=== PATIENT | male | born 1955 | race Caucasian/White ===

== ENCOUNTER 2022-09-07 10:38 | Day surgery (SDC) | payer BC, MEDICARE ==
[2022-09-06 09:30] LABS: BASOPHILS % (AUTO) 0.5 % (0-1); EOSINOPHILS # (AUTO) 0.1 X10'3 (0-0.9); EOSINOPHILS % (AUTO) 2.6 % (0-6); HEMATOCRIT 44.8 % (42.0-52.0); HEMOGLOBIN 14.9 g/dl (14.0-17.9); LYMPHOCYTES # (AUTO) 1.7 X10'3 (1.1-4.8); LYMPHOCYTES % (AUTO) 30.5 % (21-51); MEAN CORPUSCULAR HEMOGLOBIN 29.7 PG (27.0-31.0); MEAN CORPUSCULAR HGB CONC 33.2 g/dL (33.0-36.5); MEAN CORPUSCULAR VOLUME 89.5 FL (78-98); MEAN PLATELET VOLUME 7.5 FL (7.4-10.4); MONOCYTES # (AUTO) 0.5 X10'3 (0-0.9); MONOCYTES % (AUTO) 9.7 % (2-12); NEUTROPHILS # (AUTO) 3.1 X10'3 (1.8-7.7); NEUTROPHILS % (AUTO) 56.7 % (42-75); PLATELET COUNT 215 X10'3 (140-440); RED CELL DISTRIBUTION WIDTH 14.3 % (11.5-14.5); WHITE BLOOD COUNT 5.5 X10'3 (4.5-11.0)
[2022-09-06 09:34] LABS: APTT 30 SECONDS (22-32)
[2022-09-06 09:37] LABS: ALBUMIN 4.3 G/DL (3.4-5.0); ANION GAP 7 (8-16); BLOOD UREA NITROGEN 22 MG/DL (7-18); BUN/CREATININE RATIO 23.2 (10.0-20.0); CALCIUM 9.7 MG/DL (8.5-10.1); CHLORIDE 104 MMOL/L (99-107); CHOL/HDL RATIO 4.1 (0.00-4.99); CHOLESTEROL 253 MG/DL (0-200); CREATININE 0.95 MG/DL (0.60-1.10); GLUCOSE 95 MG/DL (70-104); HDL CHOLESTEROL 61 MG/DL (35-60); LDL CHOLESTEROL 160 MG/DL (50-100); POTASSIUM 4.6 MMOL/L (3.5-5.1); SODIUM 141 MMOL/L (135-145); TOTAL CARBON DIOXIDE 29.7 MMOL/L (24-32); TRIGLYCERIDES 155 MG/DL (20-135); eGFR 80 ML/MIN
[~2022-09-07] VITALS: Ht 170.2 cm; Wt 82.4 kg
[2022-09-07] VITALS (9 sets, daily range): BP systolic 96–146; BP diastolic 68–79
[2022-09-07] MEDS ORDERED: diphenhydrAMINE 25mg capsule PO PRN (11:00)
[2022-09-07] MEDS ORDERED: normal saline 1,000 ML IV SCH (11:00)
[2022-09-07] MEDS ORDERED: LORazepam 0.5 MG tablet PO PRN (11:00)
[2022-09-07] MEDS ORDERED: LEVO330T7 PO (11:28)
[2022-09-07] MEDS ORDERED: tumeric (11:28)
[2022-09-07] MEDS ORDERED: LISI30TA4 PO (11:28)
[2022-09-07] MEDS ORDERED: TRAM50TA2 PO (11:28)
[2022-09-07] MEDS ORDERED: LUTE1CAP5 PO (11:29)
[2022-09-07] MEDS ORDERED: CYAN100T47 PO (11:30)
[2022-09-07] MEDS ORDERED: MULT-1074 PO (11:30)
[2022-09-07] MEDS ORDERED: KRIL500C PO (11:31)
[2022-09-07] MEDS ORDERED: magnesium malate (11:33)
[2022-09-07] MEDS ORDERED: UBID100C16 PO (11:35)
[2022-09-07] MEDS ORDERED: ERGO500041 PO (11:36)
[2022-09-07] MEDS ORDERED: ACET-1025 PO (11:38)
[2022-09-07] MEDS ORDERED: verapamil 2.5 mg/ml inj IV ONE (11:55)
[2022-09-07] MEDS ORDERED: fentaNYL/PF 50MCG/1 ML 2ML syringe ONE (11:55)
[2022-09-07] MEDS ORDERED: heparin 1,000unit/ml 10ml vial 10 ML ONE (11:55)
[2022-09-07] MEDS ORDERED: iohexol 350MG/ML 100ml bottle IV ONE (11:55)
[2022-09-07] MEDS ORDERED: LIDOcaine 1% (10mg/ml) 2ml vial ONE (11:55)
[2022-09-07] MEDS ORDERED: midazolam 1 mg/ML 2ml injection ONE (11:55)
[2022-09-07] MEDS ORDERED: nitroGLYCERIN-Tridil 50MG/D5W 250 ML IV ONE (11:56)
[2022-09-07] MEDS ORDERED: HYDROcodone/acetaminophen 10/325mg tab PO PRN (14:35)
[2022-09-07] MEDS ORDERED: HYDROcodone/acetaminophen 5mg/325mg tablet PO PRN (14:35)
== END 2022-09-07 16:30 | disposition home or self-care (01) ==
LOC: SSTAY O 10:38
PROVIDERS: ATTEND Student in an Organized Health Care Education/Training Program
DX: I71.21 Aneurysm of the ascending aorta, without rupture (principal); Z79.01 Long term (current) use of anticoagulants; Z79.899 Other long term (current) drug therapy; Z88.2 Allergy status to sulfonamides
CPT/HCPCS: 36415; 80048; 80061; 85025; 85610; 85730; 93005; 93458; 93567; 99152; A6258; C1894; J1644; J2250; J3010; J3490; J7030; Q0163; Q9967; A6402

== ENCOUNTER 2022-11-29 05:38 | Inpatient (IN) | payer BC, MEDICARE ==
[2022-11-22 14:30] LABS: BASOPHILS % (AUTO) 0.4 % (0-1); EOSINOPHILS # (AUTO) 0.2 X10'3 (0-0.9); LYMPHOCYTES # (AUTO) 1.5 X10'3 (1.1-4.8); MEAN CORPUSCULAR HEMOGLOBIN 29.7 PG (27.0-31.0); MEAN CORPUSCULAR HGB CONC 33.3 g/dL (33.0-36.5); MEAN CORPUSCULAR VOLUME 89.2 FL (78-98); MEAN PLATELET VOLUME 7.5 FL (7.4-10.4); MONOCYTES # (AUTO) 0.6 X10'3 (0-0.9); MONOCYTES % (AUTO) 11.6 % (2-12); NEUTROPHILS # (AUTO) 2.9 X10'3 (1.8-7.7); PRE OP HEMATOCRIT 44.6 % (42.0-52.0); PRE OP HEMOGLOBIN 14.8 g/dL (14.0-17.9); PRE OP PLATELET COUNT 208 X10'3 (140-440); RED CELL DISTRIBUTION WIDTH 14.7 % (11.5-14.5)
[2022-11-22 14:41] LABS: PRE OP PROTIME 10.3 SECONDS (9.0-12.0)
[2022-11-22 14:43] LABS: CLARITY,URINE CLEAR (Clear); COLOR,URINE STRAW (Yellow); GLUCOSE, URINE NEGATIVE (Neg); KETONES,URINE NEGATIVE (Neg); LEUKOCYTE ESTERASE ,URINE NEGATIVE (Neg); NITRITES, URINE NEGATIVE (Neg); OCCULT BLOOD,URINE NEGATIVE (Neg); PROTEIN,URINE NEGATIVE (Neg); UROBILINOGEN,URINE 0.2 E.U/dL (0.2-1.0)
[2022-11-22 14:45] LABS: UA COLLECTION TYPE VOIDED
[2022-11-22 14:49] LABS: ALBUMIN 4.3 G/DL (3.4-5.0); ALBUMIN/GLOBULIN RATIO 1.2 (1.1-1.5); ALKALINE PHOSPHATASE 80 IU/L (46-116); BLOOD UREA NITROGEN 16 MG/DL (7-18); BUN/CREATININE RATIO 14.5 (10.0-20.0); CALCIUM 9.5 MG/DL (8.5-10.1); CHLORIDE 103 MMOL/L (99-107); PRE OP ALT 54 U/L (30-65); PRE OP ANION GAP 9 (8-16); PRE OP AST 34 U/L (10-37); PRE OP BILIRUB, TOTAL 0.6 MG/DL (0.0-1.0); PRE OP GLUCOSE 94 MG/DL (70-104); PRE OP SODIUM 140 MMOL/L (135-145); TOTAL CARBON DIOXIDE 28.4 MMOL/L (24-32); TOTAL PROTEIN 7.8 G/DL (6.4-8.2); eGFR 67 ML/MIN
[2022-11-22 14:54] LABS: HEMOGLOBIN A1C 5.7 % (4.5-6.2)
[2022-11-22 14:57] LABS: ABG BASE EXCESS 0.3 mmol/L (-2.0-2.0); ABG HCO3 24.4 mmol/L (22.0-26.0); ABG OXYGEN SATURATION 95.6 % (94-97); ABG PCO2 (T) 37.9 mmHg (35.0-48.0); ABG PO2 (T) 75.1 mmHg (75.0-100.0); ALLEN'S TEST POSITIVE; FCOHb 0.6 % (0.0-3.9); FMetHb 0.3 % (0.0-1.5); FO2Hb 94.7 % (94-97)
[~2022-11-29] VITALS: Ht 167.6 cm; Wt 82.9 kg
[2022-11-29] VITALS (23 sets, daily range): BP systolic 93–169; BP diastolic 50–82
[~2022-11-29 05:38] MED LIST: CYAN100T47 PO; DIPH25CA83 PO; Insulin Reg/NS 100units/100mL 100 ML IV SCH; LEVO330T7 PO; LISI30TA4 PO; LORazepam 2 mg/ml vial IV ONE; LUTE1CAP5 PO; MULT-1074 PO; OSC500T PO; TRAM50TA2 PO; UBID100C16 PO; VITA1TAB20 PO; albuterol 2.5 MG/3 ML nebule NEB ONE; cefazolin 2gm/D5W 100mL 100 ML IV ONE; dextrose 50%-water 50ml dispensing syringe IV PRN; famotidine 20mg tablet PO ONE; insulin Lispro (HumaLOG) vial - multi-dose SQ PRN; magnesium malate PO; metoprolol tartrate 12.5mg (1/2 tablet) PO ONE; mupirocin 2% nasal ointment 1gm UD NS ONE; ringers solution, lacted 1,000 ML IV SCH; tumeric PO; vancomycin 1,500 MG in NS 300ml IV soln IV ONE
[2022-11-29] MEDS ORDERED: ceFAZolin 1000mg inj ONE (06:41)
[2022-11-29] MEDS ORDERED: albuterol 2.5 MG/3 ML nebule ONE (06:50)
[2022-11-29] MEDS ORDERED: LORazepam 2 mg/ml vial ONE (07:21)
[2022-11-29] MEDS ORDERED: SUfentanil 50mcg/ml 1ml amp IV ONE (07:27)
[2022-11-29] MEDS ORDERED: propofol inj 20 ML IV ONE (07:31)
[2022-11-29] MEDS ORDERED: LIDOcaine 2% (20mg/ml) 5ml vial ONE (07:31)
[2022-11-29] MEDS ORDERED: rocuronium 10mg/ml inj IV ONE ×2 (07:32)
[2022-11-29] MEDS ORDERED: DOPamine/D5W 400mg/250ml bag IV ONE (07:38)
[2022-11-29] MEDS ORDERED: isoflurane 100ml inhalation liquid IH ONE (07:38)
[2022-11-29] MEDS ORDERED: ATRACURIUM 10 MG/ML 5ML INJECTION IV ONE (07:38)
[2022-11-29] MEDS ORDERED: niCARDipine in NS 40mg/200ml (0.2mg/ml) IVPB IV ONE (07:38)
[2022-11-29] MEDS ORDERED: nitroGLYCERIN in D5W 50mg/250ml (Tridil) infusion IV ONE (07:38)
[2022-11-29] MEDS ORDERED: albuterol 2.5 MG/3 ML nebule NEB PRN (07:40)
[2022-11-29 08:35] LABS: ABG BASE EXCESS -1.9 mmol/L (-2.0-2.0); ABG HCO3 22.3 mmol/L (22.0-26.0); ABG OXYGEN SATURATION 99.5 % (94-97); ABG PO2 226.3 mmHg (75.0-100.0); CL (ABG) 108 mmol/L (99-107); FCOHb 0.3 % (0.0-3.9); FMetHb 0.3 % (0.0-1.5); FO2Hb 98.9 % (94-97); GLUCOSE (ABG) 97 mg/dl (70-104); IONIZED CA (ABG) 1.16 mmol/L (1.10-1.30); K (ABG) 4.1 mmol/L (3.5-5.1); TOTAL HEMOGLOBIN 12.8 G/dl (14.0-17.9)
[2022-11-29 09:47] LABS: ABG BASE EXCESS -0.7 mmol/L (-2.0-2.0); ABG HCO3 24.5 mmol/L (22.0-26.0); ABG OXYGEN SATURATION 99.4 % (94-97); ABG PCO2 42.9 mmHg (35.0-48.0); ABG PO2 321.8 mmHg (75.0-100.0); CL (ABG) 103 mmol/L (99-107); FCOHb 0.3 % (0.0-3.9); FMetHb 0.1 % (0.0-1.5); GLUCOSE (ABG) 115 mg/dl (70-104); IONIZED CA (ABG) 1.03 mmol/L (1.10-1.30); K (ABG) 4.7 mmol/L (3.5-5.1); TOTAL HEMOGLOBIN 9.9 G/dl (14.0-17.9)
[2022-11-29 10:10] LABS: ABG BASE EXCESS VENOUS -1.6 mmol/L (-2.0 - 2.0); ABG HCO3 VENOUS 24.1 mmol/L (21.0-28.0); ABG PCO2 VENOUS 44.9 mmHg (41.0-54.0); ABG PO2 VENOUS 61.7 mmHg (25.0-35.0); CL (ABG) 104 mmol/L (99-107); FCOHb VENOUS 0.3 %; FHHb VENOUS 9.5 %; FMetHb VENOUS 0.3 % (0.0 - 0.5); FO2Hb VENOUS 89.9 %; GLUCOSE (ABG) 123 mg/dl (70-104); IONIZED CA (ABG) 1.06 mmol/L (1.10-1.30); K (ABG) 4.6 mmol/L (3.5-5.1); TOTAL HEMOGLOBIN 10.6 G/dl (14.0-17.9)
[2022-11-29 10:35] LABS: ABG BASE EXCESS -5.2 mmol/L (-2.0-2.0); ABG HCO3 19.8 mmol/L (22.0-26.0); ABG PCO2 36.5 mmHg (35.0-48.0); ABG PO2 183.3 mmHg (75.0-100.0); CL (ABG) 104 mmol/L (99-107); FCOHb 0.3 % (0.0-3.9); FMetHb 0.3 % (0.0-1.5); FO2Hb 98.4 % (94-97); GLUCOSE (ABG) 151 mg/dl (70-104); IONIZED CA (ABG) 1.05 mmol/L (1.10-1.30); K (ABG) 4.2 mmol/L (3.5-5.1); TOTAL HEMOGLOBIN 10.2 G/dl (14.0-17.9)
[2022-11-29 10:57] LABS: ABG BASE EXCESS -1.4 mmol/L (-2.0-2.0); ABG HCO3 21.8 mmol/L (22.0-26.0); ABG OXYGEN SATURATION 99.5 % (94-97); ABG PCO2 31.1 mmHg (35.0-48.0); ABG PO2 310.4 mmHg (75.0-100.0); CL (ABG) 103 mmol/L (99-107); FCOHb 0.1 % (0.0-3.9); FMetHb 0.3 % (0.0-1.5); FO2Hb 99.1 % (94-97); GLUCOSE (ABG) 165 mg/dl (70-104); IONIZED CA (ABG) 1.26 mmol/L (1.10-1.30); K (ABG) 4.5 mmol/L (3.5-5.1); TOTAL HEMOGLOBIN 9.2 G/dl (14.0-17.9)
[2022-11-29 11:47] LABS: ABG BASE EXCESS -0.5 mmol/L (-2.0-2.0); ABG HCO3 23.2 mmol/L (22.0-26.0); ABG OXYGEN SATURATION 98.5 % (94-97); ABG PCO2 34.6 mmHg (35.0-48.0); ABG PO2 135.4 mmHg (75.0-100.0); CL (ABG) 104 mmol/L (99-107); FCOHb 0.3 % (0.0-3.9); FMetHb 0.3 % (0.0-1.5); FO2Hb 97.9 % (94-97); GLUCOSE (ABG) 159 mg/dl (70-104); IONIZED CA (ABG) 1.12 mmol/L (1.10-1.30); K (ABG) 4.3 mmol/L (3.5-5.1); TOTAL HEMOGLOBIN 10.5 G/dl (14.0-17.9)
[2022-11-29 11:49] LABS: ACTIVATED CLOTTING TIME 108 SEC (101-148)
[2022-11-29] MEDS ORDERED: magnesium hydroxide 30ml (MOM) UD suspension PO PRN (11:55)
[2022-11-29] MEDS ORDERED: insulin glargine (Lantus) pen - multi-dose SQ PRN (11:55)
[2022-11-29] MEDS ORDERED: potassium Cl 40MEQ/1/2NS 520ml 520 ML IV PRN (11:55)
[2022-11-29] MEDS ORDERED: magnesium 4gm in 100ml NS 100 ML IV PRN (11:55)
[2022-11-29] MEDS ORDERED: potassium Cl 20 mEq SR tablet PO PRN (11:55)
[2022-11-29] MEDS ORDERED: sodium phosphate inj. 15 MMOL in dextrose 5%-water 250 ML IV PRN (11:55)
[2022-11-29] MEDS ORDERED: metoclopramide 5 mg/ml inj IV PRN (11:55)
[2022-11-29] MEDS ORDERED: potassium Cl 20mEq/100mL bag 100 ML IV PRN (11:55)
[2022-11-29] MEDS ORDERED: bisacodyl 10mg suppository rectal RC PRN (11:55)
[2022-11-29] MEDS ORDERED: dextrose 50%-water 50ml dispensing syringe IV PRN (11:55)
[2022-11-29] MEDS ORDERED: acetaminophen 325mg tablet PO PRN ×2 (11:55)
[2022-11-29] MEDS ORDERED: ondansetron/PF 4mg/2ml inj IV PRN (11:55)
[2022-11-29] MEDS ORDERED: morphine 2 MG/ML inj. syringe IV PRN (11:55)
[2022-11-29] MEDS ORDERED: morphine 4 MG/ML inj SYRINge IV PRN (11:55)
[2022-11-29] MEDS ORDERED: magnesium 2GM in 50ml NS 50 ML IV PRN (11:55)
[2022-11-29] MEDS ORDERED: mineral oil 133ml enema RC PRN (11:55)
[2022-11-29] MEDS ORDERED: Neutra Phos packet PO PRN (11:55)
[2022-11-29] MEDS ORDERED: HYDROcodone/acetaminophen 10/325mg tab PO PRN (11:55)
[2022-11-29] MEDS ORDERED: potassium CL 10mEq/100ml bag 100 ML IV PRN (11:55)
[2022-11-29] MEDS ORDERED: sodium phosphate inj. 30 MMOL in dextrose 5%-water 250 ML IV PRN (11:55)
[2022-11-29] MEDS ORDERED: potassium Cl 40MEQ/270ML bag 250 ML IV PRN (11:55)
[2022-11-29] MEDS ORDERED: nitroGLYCERIN-Tridil 50MG/D5W 250 ML IV PRN (12:30)
[2022-11-29] MEDS ORDERED: niCARDipine-NS 40mg/200ml IVPB 200 ML IV PRN (12:30)
[2022-11-29 12:58] LABS: ABG BASE EXCESS -0.1 mmol/L (-2.0-2.0); ABG HCO3 23.8 mmol/L (22.0-26.0); ABG OXYGEN SATURATION 97.2 % (94-97); ABG PCO2 (T) 33.9 mmHg (35.0-48.0); ABG PO2 (T) 88.8 mmHg (75.0-100.0); FCOHb 0.3 % (0.0-3.9); FMetHb 0.5 % (0.0-1.5); FO2Hb 96.4 % (94-97); PATIENT TEMPERATURE 35.3; PEEP 5 cm H2O; RESPIRATORY RATE 12 b/min; TIDAL VOLUME 600 mL; TOTAL HEMOGLOBIN 12.5 G/dl (14.0-17.9)
[2022-11-29] MEDS ORDERED: heparin 1,000 units/ml 10ml inj ONE (13:00)
[2022-11-29] MEDS ORDERED: potassium Cl 2 mEq/ml inj IV ONE (13:00)
[2022-11-29] MEDS: gabapentin 300mg capsule PO SCH ×2 (13:00→21:00)
[2022-11-29] MEDS ORDERED: LIDOcaine 2% (20 mg/ml) 5ml cardiac syringe ONE (13:00)
[2022-11-29] MEDS ORDERED: sodium chloride 0.45% 1,000 ML IV SCH (13:00)
[2022-11-29] MEDS ORDERED: aminocaproic acid 250 MG/1 ML inj. ONE (13:00)
[2022-11-29] MEDS ORDERED: NORepinephrine 1 mg/ml inj IV ONE (13:00)
[2022-11-29] MEDS ORDERED: MAGNESIUM SULFATE 4 MEQ/ML (5gm/10ml) injection ONE (13:00)
[2022-11-29] MEDS ORDERED: albumin (human) 25% 100 ML IV solution IV ONE (13:00)
[2022-11-29] MEDS ORDERED: mannitol 12.5gm/50mL VIAL IV ONE (13:00)
[2022-11-29] MEDS ORDERED: calcium chloride 100 MG/1 ML inj IV ONE (13:00)
[2022-11-29] MEDS ORDERED: methylPREDNISolone sod succ 1000mg vial ONE (13:00)
[2022-11-29] MEDS ORDERED: heparin 10,000 units/1 ML INJ ONE (13:00)
[2022-11-29] MEDS ORDERED: sodium bicarbonate (8.4%) 1 mEq/ml syringe ONE (13:00)
[2022-11-29 13:07] LABS: BASOPHILS % (AUTO) 0.1 % (0-1); EOSINOPHILS # (AUTO) 0.1 X10'3 (0-0.9); EOSINOPHILS % (AUTO) 0.7 % (0-6); HEMATOCRIT 35.5 % (42.0-52.0); HEMOGLOBIN 11.9 g/dl (14.0-17.9); LYMPHOCYTES # (AUTO) 0.6 X10'3 (1.1-4.8); LYMPHOCYTES % (AUTO) 6.9 % (21-51); MEAN CORPUSCULAR HEMOGLOBIN 29.7 PG (27.0-31.0); MEAN CORPUSCULAR HGB CONC 33.4 g/dL (33.0-36.5); MEAN CORPUSCULAR VOLUME 88.9 FL (78-98); MEAN PLATELET VOLUME 7.4 FL (7.4-10.4); MONOCYTES # (AUTO) 0.3 X10'3 (0-0.9); MONOCYTES % (AUTO) 3.7 % (2-12); NEUTROPHILS # (AUTO) 7.7 X10'3 (1.8-7.7); NEUTROPHILS % (AUTO) 88.6 % (42-75); PLATELET COUNT 171 X10'3 (140-440); RED CELL DISTRIBUTION WIDTH 14.6 % (11.5-14.5); WHITE BLOOD COUNT 8.7 X10'3 (4.5-11.0)
[2022-11-29 13:14] LABS: APTT 26 SECONDS (22-32)
[2022-11-29 13:15] LABS: ALANINE AMINOTRANSFERASE 33 U/L (12-78); ALBUMIN/GLOBULIN RATIO 1.3 (1.1-1.5); ALKALINE PHOSPHATASE 48 IU/L (46-116); ANION GAP 10 (8-16); BILIRUBIN,TOTAL 0.8 MG/DL (0.1-1.0); BLOOD UREA NITROGEN 15 MG/DL (7-18); BUN/CREATININE RATIO 14.6 (10.0-20.0); CALCIUM 8.3 MG/DL (8.5-10.1); CHLORIDE 107 MMOL/L (99-107); CREATININE 1.03 MG/DL (0.60-1.10); GLUCOSE 151 MG/DL (70-104); MAGNESIUM 3.2 MG/DL (1.5-2.4); SODIUM 143 MMOL/L (135-145); TOTAL CARBON DIOXIDE 25.8 MMOL/L (24-32); TOTAL PROTEIN 5.3 G/DL (6.4-8.2); eGFR 72 ML/MIN
[2022-11-29] MEDS: Insulin Reg/NS 100units/100mL 100 ML IV SCH (13:23)
[2022-11-29 13:41] LABS: ASPARTATE AMINO TRANSFERASE 35 U/L (10-37); PHOSPHORUS 2.1 MG/DL (2.3-4.5); POTASSIUM 4.1 MMOL/L (3.5-5.1)
--- NOTE | 2022-11-29 13:54 | NUR ---
Received to room , accompanied by MDs and surgical crew. Placed on ventilator, to alarm security or surveillance monitor, arterial line and PA line pressure zeroed & monitored. Chest tubes to suction at 20 cm. Valdivia cath to gravity drainage. Dressings are dry and intact. See assessment record. All vasoactive drugs are infusing via central line.
[2022-11-29] MEDS: albumin (Human) 5% 250ml 250 ML IV PRN ×2 (14:23→18:39)
--- NOTE | 2022-11-29 14:48 | NUR ---
unable to give 1300 dose of neurotin, OG tube not in correct place. Tried 4 times to replace, OG tube kept coiling in the back of the throat. Senior Erp Consultant attempted to replace as well with no success
[2022-11-29] MEDS: ceFAZolin/D5W- 1GM premix 50 ML IV SCH ×2 (15:40→23:37)
[2022-11-29] MEDS ORDERED: potassium Cl 40MEQ/270ML bag 270 ML IV ONE (15:55)
[2022-11-29] MEDS ORDERED: potassium Cl 40MEQ/270ML bag 250 ML IV ONE (15:55)
[2022-11-29] MEDS ORDERED: potassium Cl 40MEQ/270ML bag 270 ML IV PRN (15:57)
--- NOTE | 2022-11-29 16:56 | NUR ---
called Dr. Valencia in regards to patient having a 30 second run of SVT with a rate in the 140s stated to start him on ammio if he does it again
[2022-11-29 18:06] LABS: BASOPHILS % (AUTO) 0 % (0-1); EOSINOPHILS % (AUTO) 0.1 % (0-6); HEMATOCRIT 32.3 % (42.0-52.0); HEMOGLOBIN 10.6 g/dl (14.0-17.9); LYMPHOCYTES # (AUTO) 0.5 X10'3 (1.1-4.8); LYMPHOCYTES % (AUTO) 3.1 % (21-51); MEAN CORPUSCULAR HEMOGLOBIN 29.5 PG (27.0-31.0); MEAN CORPUSCULAR HGB CONC 32.9 g/dL (33.0-36.5); MEAN CORPUSCULAR VOLUME 89.6 FL (78-98); MEAN PLATELET VOLUME 7.3 FL (7.4-10.4); MONOCYTES # (AUTO) 0.7 X10'3 (0-0.9); MONOCYTES % (AUTO) 4.8 % (2-12); NEUTROPHILS # (AUTO) 14.4 X10'3 (1.8-7.7); PLATELET COUNT 167 X10'3 (140-440); RED BLOOD COUNT 3.61 X10'6 (4.70-6.10); RED CELL DISTRIBUTION WIDTH 14.6 % (11.5-14.5); WHITE BLOOD COUNT 15.6 X10'3 (4.5-11.0)
--- NOTE | 2022-11-29 18:17 | NUR ---
Problems reprioritized. Patient report given, questions answered & plan of care reviewed with Huong PACK.
[2022-11-29 18:20] LABS: ANION GAP 11 (8-16); BLOOD UREA NITROGEN 18 MG/DL (7-18); BUN/CREATININE RATIO 14.3 (10.0-20.0); CHLORIDE 110 MMOL/L (99-107); CREATININE 1.26 MG/DL (0.60-1.10); GLUCOSE 155 MG/DL (70-104); MAGNESIUM 2.5 MG/DL (1.5-2.4); PHOSPHORUS 3.4 MG/DL (2.3-4.5); POTASSIUM 4.8 MMOL/L (3.5-5.1); SODIUM 143 MMOL/L (135-145); TOTAL CARBON DIOXIDE 21.6 MMOL/L (24-32); eGFR 57 ML/MIN
--- NOTE | 2022-11-29 18:30 | NUR ---
Patient in room ICU 2044. I have received report from Kassandra PACK and had the opportunity to ask questions and assume patient care.
[2022-11-29] MEDS: sennosides/docusate sodium tablet PO SCH (20:00)
[2022-11-29] MEDS: mupirocin 2% nasal ointment 1gm UD NS SCH (20:15)
[2022-11-29] MEDS: vancomycin/NS 1 GM ADD-VANTAGE 250 ML IV SCH (20:15)
[2022-11-29] MEDS ORDERED: atorvastatin 10mg tablet PO SCH (21:00)
[2022-11-29 22:43] LABS: ABG BASE EXCESS -2.9 mmol/L (-2.0-2.0); ABG HCO3 22.2 mmol/L (22.0-26.0); ABG OXYGEN SATURATION 95.7 % (94-97); ABG PCO2 (T) 38.3 mmHg (35.0-48.0); ABG PO2 (T) 83.4 mmHg (75.0-100.0); FCOHb 0.3 % (0.0-3.9); FMetHb 0.4 % (0.0-1.5); PATIENT TEMPERATURE 36.1; TOTAL HEMOGLOBIN 11.5 G/dl (14.0-17.9)
[2022-11-30] VITALS (24 sets, daily range): BP systolic 109–151; BP diastolic 55–81
[2022-11-30] MEDS: HYDROcodone/acetaminophen 10/325mg tab PO PRN ×3 (00:56→21:00)
[2022-11-30 04:38] LABS: BASOPHILS # (AUTO) 0.1 X10'3 (0-0.2); BASOPHILS % (AUTO) 0.4 % (0-1); EOSINOPHILS % (AUTO) 0 % (0-6); HEMATOCRIT 30.8 % (42.0-52.0); HEMOGLOBIN 10.2 g/dl (14.0-17.9); LYMPHOCYTES # (AUTO) 0.4 X10'3 (1.1-4.8); LYMPHOCYTES % (AUTO) 2.8 % (21-51); MEAN CORPUSCULAR HEMOGLOBIN 29.2 PG (27.0-31.0); MEAN CORPUSCULAR HGB CONC 33.1 g/dL (33.0-36.5); MEAN CORPUSCULAR VOLUME 88.2 FL (78-98); MEAN PLATELET VOLUME 7.9 FL (7.4-10.4); MONOCYTES # (AUTO) 0.9 X10'3 (0-0.9); MONOCYTES % (AUTO) 6.1 % (2-12); NEUTROPHILS % (AUTO) 90.7 % (42-75); PLATELET COUNT 123 X10'3 (140-440); RED BLOOD COUNT 3.49 X10'6 (4.70-6.10); WHITE BLOOD COUNT 15.4 X10'3 (4.5-11.0)
[2022-11-30 04:47] LABS: ALANINE AMINOTRANSFERASE 38 U/L (12-78); ALBUMIN 3.4 G/DL (3.4-5.0); ALBUMIN/GLOBULIN RATIO 1.6 (1.1-1.5); ALKALINE PHOSPHATASE 36 IU/L (46-116); ANION GAP 9 (8-16); ASPARTATE AMINO TRANSFERASE 50 U/L (10-37); BILIRUBIN,TOTAL 0.5 MG/DL (0.1-1.0); BLOOD UREA NITROGEN 18 MG/DL (7-18); BUN/CREATININE RATIO 19.6 (10.0-20.0); CHLORIDE 110 MMOL/L (99-107); CREATININE 0.92 MG/DL (0.60-1.10); GLUCOSE 121 MG/DL (70-104); MAGNESIUM 2.2 MG/DL (1.5-2.4); PHOSPHORUS 3.8 MG/DL (2.3-4.5); POTASSIUM 4.4 MMOL/L (3.5-5.1); SODIUM 144 MMOL/L (135-145); TOTAL CARBON DIOXIDE 24.7 MMOL/L (24-32); TOTAL PROTEIN 5.5 G/DL (6.4-8.2); eGFR 83 ML/MIN
--- NOTE | 2022-11-30 06:00 | NUR ---
Patient in room ICU 2044. I have received report from Huong PACK and had the opportunity to ask questions and assume patient care.
--- NOTE | 2022-11-30 06:23 | NUR ---
Problems reprioritized. Patient report given, questions answered & plan of care reviewed with Alexandra PACK.
[2022-11-30] MEDS: ceFAZolin/D5W- 1GM premix 50 ML IV SCH ×3 (07:39→23:17)
[2022-11-30] MEDS: gabapentin 300mg capsule PO SCH (07:41)
[2022-11-30] MEDS: beta-carotene(A) w/C & E + minerals tab PO SCH (07:41)
[2022-11-30] MEDS: vitamin B comp w/Vit. C tab 1 TAB TABLET PO SCH (07:41)
[2022-11-30] MEDS: calcium carbonate 500mg tablet PO SCH (07:41)
[2022-11-30] MEDS: multivitamins, therapeutics tablet PO SCH (07:42)
[2022-11-30] MEDS: aspirin 81mg tab.chew PO SCH (07:42)
[2022-11-30] MEDS: sennosides/docusate sodium tablet PO SCH ×2 (07:42→20:59)
[2022-11-30] MEDS: mupirocin 2% nasal ointment 1gm UD NS SCH ×2 (07:42→20:59)
[2022-11-30] MEDS: metoprolol tartrate 12.5mg (1/2 tablet) PO SCH ×2 (07:43→21:00)
[2022-11-30] MEDS ORDERED: LEVOCARNITINE PO SCH (08:00)
[2022-11-30] MEDS ORDERED: non-formulary drug (Ubidecarenone (Coq-10) 300 MG) PO SCH (08:00)
[2022-11-30] MEDS: vancomycin/NS 1 GM ADD-VANTAGE 250 ML IV SCH ×2 (08:18→20:59)
--- NOTE | 2022-11-30 08:23 | NUR ---
Nutrition Consult: Pt s/p OR for ascending aortic replacement per EMR; would benefit from high protein diet ed once more appropriate post-op prior to discharge. Addendum: 11/30/22 at [address] Amended: Links added.
[2022-11-30] MEDS ORDERED: traMADol 50MG tablet PO PRN (08:25)
--- NOTE | 2022-11-30 18:20 | NUR ---
Problems reprioritized. Patient report given, questions answered & plan of care reviewed with Nely PACK.
[2022-11-30] MEDS: Insulin Reg/NS 100units/100mL 100 ML IV SCH (21:50)
[2022-12-01] VITALS (16 sets, daily range): BP systolic 101–158; BP diastolic 53–86
[2022-12-01 02:58] LABS: BASOPHILS % (AUTO) 0.2 % (0-1); EOSINOPHILS % (AUTO) 0 % (0-6); HEMATOCRIT 31.5 % (42.0-52.0); HEMOGLOBIN 10.1 g/dl (14.0-17.9); LYMPHOCYTES # (AUTO) 1.1 X10'3 (1.1-4.8); LYMPHOCYTES % (AUTO) 4.8 % (21-51); MEAN CORPUSCULAR HEMOGLOBIN 28.8 PG (27.0-31.0); MEAN CORPUSCULAR HGB CONC 32.2 g/dL (33.0-36.5); MEAN CORPUSCULAR VOLUME 89.4 FL (78-98); MEAN PLATELET VOLUME 7.7 FL (7.4-10.4); NEUTROPHILS # (AUTO) 19.6 X10'3 (1.8-7.7); PLATELET COUNT 110 X10'3 (140-440); RED BLOOD COUNT 3.52 X10'6 (4.70-6.10); RED CELL DISTRIBUTION WIDTH 15.5 % (11.5-14.5); WHITE BLOOD COUNT 22.7 X10'3 (4.5-11.0)
[2022-12-01 03:13] LABS: ALBUMIN 3.3 G/DL (3.4-5.0); ANION GAP 8 (8-16); BLOOD UREA NITROGEN 19 MG/DL (7-18); BUN/CREATININE RATIO 21.3 (10.0-20.0); CALCIUM 8.4 MG/DL (8.5-10.1); CHLORIDE 107 MMOL/L (99-107); CREATININE 0.89 MG/DL (0.60-1.10); GLUCOSE 142 MG/DL (70-104); MAGNESIUM 2.2 MG/DL (1.5-2.4); PHOSPHORUS 2.7 MG/DL (2.3-4.5); POTASSIUM 5.2 MMOL/L (3.5-5.1); SODIUM 142 MMOL/L (135-145); TOTAL CARBON DIOXIDE 26.8 MMOL/L (24-32); eGFR 86 ML/MIN
--- NOTE | 2022-12-01 06:30 | NUR ---
Patient in room ICU 2044. I have received report from Andie PACK and had the opportunity to ask questions and assume patient care.
[2022-12-01 07:31] LABS: ACT @ 1.70 U 273 SEC (193-297); ACT @ 2.84 U 390 SEC (260-420); BASELINE ACT 138 SEC (101-148); PATIENT WEIGHT 83.0k KG
[2022-12-01] MEDS: mupirocin 2% nasal ointment 1gm UD NS SCH (07:48)
[2022-12-01] MEDS: metoprolol tartrate 12.5mg (1/2 tablet) PO SCH ×2 (07:49→19:34)
[2022-12-01] MEDS: vitamin B comp w/Vit. C tab 1 TAB TABLET PO SCH (07:50)
[2022-12-01] MEDS ORDERED: potassium Cl 40MEQ/1/2NS 520ml 520 ML IV PRN (07:50)
[2022-12-01] MEDS: multivitamins, therapeutics tablet PO SCH (07:50)
[2022-12-01] MEDS: pantoprazole 40mg Tablet.DR PO SCH (07:50)
[2022-12-01] MEDS: calcium carbonate 500mg tablet PO SCH (07:50)
[2022-12-01] MEDS ORDERED: magnesium 2GM in 50ml NS 50 ML IV PRN (07:50)
[2022-12-01] MEDS ORDERED: potassium Cl 40MEQ/270ML bag 270 ML IV PRN (07:50)
[2022-12-01] MEDS ORDERED: potassium Cl 20mEq/100mL bag 100 ML IV PRN (07:50)
[2022-12-01] MEDS: beta-carotene(A) w/C & E + minerals tab PO SCH (07:50)
[2022-12-01] MEDS ORDERED: potassium Cl 20 mEq SR tablet PO PRN ×2 (07:50)
[2022-12-01] MEDS ORDERED: magnesium 4gm in 100ml NS 100 ML IV PRN (07:50)
[2022-12-01] MEDS ORDERED: potassium CL 10mEq/100ml bag 100 ML IV PRN (07:50)
[2022-12-01] MEDS: sennosides/docusate sodium tablet PO SCH ×2 (07:51→19:34)
[2022-12-01] MEDS: magnesium Cl slow-release 64mg tablet PO SCH ×2 (08:35→19:33)
[2022-12-01] MEDS: lisinopril 10 MG tablet PO SCH (08:35)
[2022-12-01] MEDS: aspirin 81mg tab.chew PO SCH (08:36)
[2022-12-01] MEDS: HYDROcodone/acetaminophen 10/325mg tab PO PRN ×3 (08:38→19:43)
--- NOTE | 2022-12-01 09:26 | NUR ---
No s/s of complications, good use of flutter valve/IS, walking halls, minimal pain reported Addendum: 12/01/22 at 0928 by Mynor Torres RN Amended: Links added.
--- NOTE | 2022-12-01 09:27 | NUR ---
2L o2, sats drop slightly when talking, no s/s of sob Addendum: 12/01/22 at 0928 by Mynor Torers RN Amended: Links added.
--- NOTE | 2022-12-01 09:28 | NUR ---
Up in [place] multiple times per day with minimal staff assist, up to chair for meals Addendum: 12/01/22 at 0928 by Mynor Torres RN Amended: Links added.
--- NOTE | 2022-12-01 10:20 | NUR ---
desatted to 86 while sleeping om RA, o2 reapplied, upped to 3L to return o2 to 92-94%. Will attempt to wean back to 2 L after pt finished napping
--- NOTE | 2022-12-01 10:57 | NUR ---
Problems reprioritized. Patient report given, questions answered & plan of care reviewed with Juancho PACK.
--- NOTE | 2022-12-01 12:58 | NUR ---
Nutrition consult: Pt POD #2 s/p aortic root replacement. Pt seen at bedside provided with written and verbal high protein and heart healthy nutrition therapy educations. Pt states appetite is improving and denies food allergies, difficulty feeding self, difficulty chewing/swallowing, or constipation/diarrhea with LBM this morning. Pt provided with RD contact information and encouraged to reach out if needed. Will continue to follow. Addendum: 12/01/22 at [address] Amended: Links added.
--- NOTE | 2022-12-01 18:15 | NUR ---
Patient in room U 3018. I have received report from SIRENA Dawkins and had the opportunity to ask questions and assume patient care. Patient is up walking with , in now obvious distress. I will continue to monitor.
[2022-12-02] VITALS (22 sets, daily range): BP systolic 91–147; BP diastolic 45–85
--- NOTE | 2022-12-02 00:33 | NUR ---
Patient's HR is up in the 140-150's, I will get an EKG.
[2022-12-02] MEDS ORDERED: amiodarone 150mg/dext, iso-os 100 ML IV ONE (00:55)
--- NOTE | 2022-12-02 00:58 | NUR ---
Patient flipped into afib with RVR, HR in 140's. I cld Dr. Machado and her ordered Amiodarone 150mg bolus and then Amiodarone gtt 1mg/hr
[2022-12-02] MEDS: amiodarone/D5 360MG/200ML BAG 200 ML IV SCH ×3 (01:23→15:48)
[2022-12-02] MEDS: HYDROcodone/acetaminophen 10/325mg tab PO PRN ×4 (01:28→20:21)
--- NOTE | 2022-12-02 06:06 | NUR ---
Problems reprioritized. Patient report given, questions answered & plan of care reviewed with SIRENA Key.
--- NOTE | 2022-12-02 06:25 | NUR ---
Patient in room PCU 3018. I have received report from Jennie PACK and had the opportunity to ask questions and assume patient care.Pt awake and very talkative, Amio Gtt rate change to 0.5 mg/H. Pt remains in AFIB @ 114 BPM. Call light in reach. Addendum: 12/02/22 at 0715 by Flaca Crocker RN Amended: Links added.
[2022-12-02 06:49] LABS: BASOPHILS % (AUTO) 0 % (0-1); EOSINOPHILS % (AUTO) 0 % (0-6); HEMATOCRIT 32.2 % (42.0-52.0); HEMOGLOBIN 10.6 g/dl (14.0-17.9); LYMPHOCYTES # (AUTO) 1.7 X10'3 (1.1-4.8); LYMPHOCYTES % (AUTO) 9.1 % (21-51); MEAN CORPUSCULAR HEMOGLOBIN 29.3 PG (27.0-31.0); MEAN CORPUSCULAR HGB CONC 32.8 g/dL (33.0-36.5); MEAN CORPUSCULAR VOLUME 89.3 FL (78-98); MEAN PLATELET VOLUME 8.4 FL (7.4-10.4); MONOCYTES # (AUTO) 2.2 X10'3 (0-0.9); MONOCYTES % (AUTO) 12.1 % (2-12); NEUTROPHILS # (AUTO) 14.5 X10'3 (1.8-7.7); NEUTROPHILS % (AUTO) 78.8 % (42-75); PLATELET COUNT 114 X10'3 (140-440); RED BLOOD COUNT 3.61 X10'6 (4.70-6.10); RED CELL DISTRIBUTION WIDTH 14.7 % (11.5-14.5); WHITE BLOOD COUNT 18.4 X10'3 (4.5-11.0)
[2022-12-02 07:00] LABS: ALBUMIN 3.2 G/DL (3.4-5.0); ANION GAP 8 (8-16); BLOOD UREA NITROGEN 21 MG/DL (7-18); BUN/CREATININE RATIO 23.1 (10.0-20.0); CALCIUM 8.8 MG/DL (8.5-10.1); CHLORIDE 103 MMOL/L (99-107); CREATININE 0.91 MG/DL (0.60-1.10); GLUCOSE 117 MG/DL (70-104); POTASSIUM 4.5 MMOL/L (3.5-5.1); SODIUM 139 MMOL/L (135-145); TOTAL CARBON DIOXIDE 27.6 MMOL/L (24-32); eGFR 84 ML/MIN
[2022-12-02 07:53] LABS: TOTAL CELLS COUNTED 100
[2022-12-02 07:54] LABS: PLATELET ESTIMATE DECREASED
[2022-12-02 07:55] LABS: LARGE PLATELETS FEW
[2022-12-02] MEDS: aspirin 81mg tab.chew PO SCH (08:41)
[2022-12-02] MEDS: vitamin B comp w/Vit. C tab 1 TAB TABLET PO SCH (08:42)
[2022-12-02] MEDS: magnesium Cl slow-release 64mg tablet PO SCH ×2 (08:42→20:08)
[2022-12-02] MEDS: calcium carbonate 500mg tablet PO SCH (08:42)
[2022-12-02] MEDS: multivitamins, therapeutics tablet PO SCH (08:42)
[2022-12-02] MEDS: sennosides/docusate sodium tablet PO SCH ×2 (08:43→20:08)
[2022-12-02] MEDS: lisinopril 10 MG tablet PO SCH (08:43)
[2022-12-02] MEDS: metoprolol tartrate 12.5mg (1/2 tablet) PO SCH ×2 (08:44→20:15)
[2022-12-02] MEDS: pantoprazole 40mg Tablet.DR PO SCH (08:47)
[2022-12-02] MEDS ORDERED: LISI10TA27 PO (08:55)
[2022-12-02] MEDS ORDERED: LOP12.5T PO (08:55)
[2022-12-02] MEDS ORDERED: ASPI81TA53 PO (08:55)
[2022-12-02] MEDS ORDERED: HYDR-3972 PO (08:55)
[2022-12-02] MEDS ORDERED: AMIO200T67 PO (08:57)
[2022-12-02] MEDS: beta-carotene(A) w/C & E + minerals tab PO SCH (10:15)
[2022-12-02] MEDS ORDERED: TRAM50TA2 PO (13:00)
[2022-12-02] MEDS: LEVOCARNITINE 330 MG PO SCH ×3 (13:27→20:08)
--- NOTE | 2022-12-02 18:29 | NUR ---
Problems reprioritized. Patient report given, questions answered & plan of care reviewed with Steve PACK. Pt playing cards with . Finished with dinner. Addendum: 12/02/22 at 1830 by Flaca Crocker RN Amended: Links added.
--- NOTE | 2022-12-02 19:01 | NUR ---
Patient in room PCU 3018. I have received report from Flaca and had the opportunity to ask questions and assume patient care.
[2022-12-03] VITALS (16 sets, daily range): BP systolic 91–133; BP diastolic 56–81
[2022-12-03] MEDS: amiodarone/D5 360MG/200ML BAG 200 ML IV SCH (01:09)
[2022-12-03] MEDS: HYDROcodone/acetaminophen 10/325mg tab PO PRN ×3 (01:14→18:01)
--- NOTE | 2022-12-03 06:23 | NUR ---
Patient in room U 3018. I have received report from Steve PACK and had the opportunity to ask questions and assume patient care.Pt awake and alert. Call light in reach. States he "had a good night". Addendum: 12/03/22 at 0624 by Flaca Crocker RN Amended: Links added.
--- NOTE | 2022-12-03 06:40 | NUR ---
Problems reprioritized. Patient report given, questions answered & plan of care reviewed with Flaca.
[2022-12-03 06:49] LABS: BASOPHILS % (AUTO) 0.1 % (0-1); EOSINOPHILS # (AUTO) 0.2 X10'3 (0-0.9); EOSINOPHILS % (AUTO) 1.4 % (0-6); HEMATOCRIT 32.1 % (42.0-52.0); HEMOGLOBIN 10.6 g/dl (14.0-17.9); LYMPHOCYTES # (AUTO) 1.4 X10'3 (1.1-4.8); LYMPHOCYTES % (AUTO) 11.7 % (21-51); MEAN CORPUSCULAR HEMOGLOBIN 29.3 PG (27.0-31.0); MEAN CORPUSCULAR HGB CONC 33.1 g/dL (33.0-36.5); MEAN CORPUSCULAR VOLUME 88.5 FL (78-98); MEAN PLATELET VOLUME 8.3 FL (7.4-10.4); MONOCYTES # (AUTO) 1.4 X10'3 (0-0.9); MONOCYTES % (AUTO) 11.9 % (2-12); NEUTROPHILS # (AUTO) 9.1 X10'3 (1.8-7.7); NEUTROPHILS % (AUTO) 74.9 % (42-75); PLATELET COUNT 126 X10'3 (140-440); RED BLOOD COUNT 3.63 X10'6 (4.70-6.10); RED CELL DISTRIBUTION WIDTH 14.6 % (11.5-14.5); WHITE BLOOD COUNT 12.1 X10'3 (4.5-11.0)
[2022-12-03 07:08] LABS: ALBUMIN 2.9 G/DL (3.4-5.0); ANION GAP 8 (8-16); BLOOD UREA NITROGEN 23 MG/DL (7-18); BUN/CREATININE RATIO 28.8 (10.0-20.0); CHLORIDE 102 MMOL/L (99-107); GLUCOSE 98 MG/DL (70-104); POTASSIUM 4.4 MMOL/L (3.5-5.1); SODIUM 139 MMOL/L (135-145); TOTAL CARBON DIOXIDE 28.9 MMOL/L (24-32); eGFR > 90 ML/MIN
[2022-12-03] MEDS: lisinopril 10 MG tablet PO SCH (08:15)
[2022-12-03] MEDS: calcium carbonate 500mg tablet PO SCH (08:15)
[2022-12-03] MEDS: magnesium Cl slow-release 64mg tablet PO SCH ×2 (08:15→20:34)
[2022-12-03] MEDS: pantoprazole 40mg Tablet.DR PO SCH (08:16)
[2022-12-03] MEDS: sennosides/docusate sodium tablet PO SCH ×2 (08:17→20:34)
[2022-12-03] MEDS: aspirin 81mg tab.chew PO SCH (08:17)
[2022-12-03] MEDS: vitamin B comp w/Vit. C tab 1 TAB TABLET PO SCH (08:17)
[2022-12-03] MEDS: metoprolol tartrate 12.5mg (1/2 tablet) PO SCH ×2 (08:17→20:35)
[2022-12-03] MEDS: beta-carotene(A) w/C & E + minerals tab PO SCH (08:17)
[2022-12-03] MEDS: LEVOCARNITINE 330 MG PO SCH ×3 (08:18→18:02)
[2022-12-03] MEDS: multivitamins, therapeutics tablet PO SCH (08:18)
--- NOTE | 2022-12-03 08:45 | NUR ---
Pt converted to afib controlled rate for 5 min. back to SR.
[2022-12-03] MEDS ORDERED: amiodarone 200mg tablet PO STA (12:52)
[2022-12-03] MEDS ORDERED: ondansetron 4mg rapidly disintigrating tab PO PRN (14:13)
--- NOTE | 2022-12-03 18:27 | NUR ---
Patient in room PCU 3018. I have received report from Flaca and had the opportunity to ask questions and assume patient care.
--- NOTE | 2022-12-03 18:29 | NUR ---
Problems reprioritized. Patient report given, questions answered & plan of care reviewed with Steve PACK. Pt watching TV and eating Dinner. Call light in reach.. Addendum: 12/03/22 at 1830 by Flaca Crocker RN Amended: Links added.
[2022-12-03] MEDS: amiodarone 200mg tablet PO SCH (20:33)
[2022-12-04 02:00] VITALS: BP 121/72
--- NOTE | 2022-12-04 04:41 | NUR ---
Pt got up for first time tonight to go to bathroom. As he was in bathroom, telehealth nurse educator. advised pt with into A-fib with Ventricular rate in 130-140 range. 0439 pt went into A-Fib. Went and advised pt of situation and had him get back in bed, which he did at 0446. Pt still in A-fib at 0448 but HR in 120's. Will monitor and advise MD if HR doesn't stabilize.
--- NOTE | 2022-12-04 05:13 | NUR ---
Pt converted back to NSR with HR in 80's at 0513. Pt lying in bed for approx 10 minutes prior to this. Pt in A-fib approx 30 minutes. The onset was pt getting up out of bed to bathroom.
[2022-12-04 06:15] VITALS: BP 110/79
--- NOTE | 2022-12-04 06:25 | NUR ---
Problems reprioritized. Patient report given, questions answered & plan of care reviewed with Flaca.
[2022-12-04 06:40] LABS: BASOPHILS % (AUTO) 0.1 % (0-1); EOSINOPHILS # (AUTO) 0.1 X10'3 (0-0.9); EOSINOPHILS % (AUTO) 1.3 % (0-6); HEMATOCRIT 33.3 % (42.0-52.0); LYMPHOCYTES # (AUTO) 0.9 X10'3 (1.1-4.8); LYMPHOCYTES % (AUTO) 8.4 % (21-51); MEAN CORPUSCULAR HEMOGLOBIN 29.2 PG (27.0-31.0); MEAN CORPUSCULAR VOLUME 88.4 FL (78-98); MEAN PLATELET VOLUME 7.7 FL (7.4-10.4); MONOCYTES # (AUTO) 1.6 X10'3 (0-0.9); MONOCYTES % (AUTO) 14.6 % (2-12); NEUTROPHILS # (AUTO) 8.2 X10'3 (1.8-7.7); NEUTROPHILS % (AUTO) 75.6 % (42-75); PLATELET COUNT 159 X10'3 (140-440); RED BLOOD COUNT 3.76 X10'6 (4.70-6.10); RED CELL DISTRIBUTION WIDTH 14.6 % (11.5-14.5); WHITE BLOOD COUNT 10.8 X10'3 (4.5-11.0)
[2022-12-04 06:52] LABS: ALBUMIN 2.8 G/DL (3.4-5.0); ANION GAP 7 (8-16); BLOOD UREA NITROGEN 23 MG/DL (7-18); BUN/CREATININE RATIO 25.3 (10.0-20.0); CALCIUM 8.9 MG/DL (8.5-10.1); CHLORIDE 101 MMOL/L (99-107); CREATININE 0.91 MG/DL (0.60-1.10); GLUCOSE 105 MG/DL (70-104); POTASSIUM 4.4 MMOL/L (3.5-5.1); SODIUM 137 MMOL/L (135-145); TOTAL CARBON DIOXIDE 29.1 MMOL/L (24-32); eGFR 84 ML/MIN
[2022-12-04] MEDS: pantoprazole 40mg Tablet.DR PO SCH (07:47)
[2022-12-04] MEDS: magnesium Cl slow-release 64mg tablet PO SCH (07:47)
[2022-12-04] MEDS: amiodarone 200mg tablet PO SCH (07:48)
[2022-12-04] MEDS: aspirin 81mg tab.chew PO SCH (07:48)
[2022-12-04] MEDS: multivitamins, therapeutics tablet PO SCH (07:48)
[2022-12-04] MEDS: vitamin B comp w/Vit. C tab 1 TAB TABLET PO SCH (07:48)
[2022-12-04] MEDS: lisinopril 10 MG tablet PO SCH (07:49)
[2022-12-04 07:50] VITALS: BP_SYST 110
[2022-12-04] MEDS: metoprolol tartrate 12.5mg (1/2 tablet) PO SCH (07:50)
[2022-12-04] MEDS: beta-carotene(A) w/C & E + minerals tab PO SCH (07:51)
[2022-12-04] MEDS: LEVOCARNITINE 330 MG PO SCH (07:51)
[2022-12-04] MEDS: calcium carbonate 500mg tablet PO SCH (07:51)
[2022-12-04] MEDS: sennosides/docusate sodium tablet PO SCH (07:52)
[2022-12-04] MEDS ORDERED: APIX5TAB3 PO (08:49)
--- NOTE | 2022-12-04 10:21 | NUR ---
All written and verbal orders for D/C given all questions answered. pt stated he had all belongings . home with . home meds forgotten in RX. Will notify again, first call unanswered. Addendum: 12/04/22 at 1024 by Flaca Crocker RN Amended: Links added.
--- NOTE | 2022-12-04 16:52 | NUR ---
contacted Pt regarding home med left here and in RX. asked that i just destroy them as they do not want them and will not be picking them up.
== END 2022-12-04 10:18 | disposition home or self-care (01) | DRG 221 ==
LOC: PAS IN 05:38 → ICU 2S 12:21 → PCU 3S 12-01 11:27
PROVIDERS: ADMIT Thoracic Surgery (Cardiothoracic Vascular Surgery); ATTEND Thoracic Surgery (Cardiothoracic Vascular Surgery)
PROC: 02RX08Z Replacement of Thoracic Aorta, Ascending/Arch with Zooplastic Tissue, Open Approach (ICD-10-PCS; 2022-11-29)
PROC: 5A1221Z Performance of Cardiac Output, Continuous (ICD-10-PCS; 2022-11-29)
PROC: B24BZZ4 Ultrasonography of Heart with Aorta, Transesophageal (ICD-10-PCS; 2022-11-29)
PROC: 30233R1 Transfusion of Nonautologous Platelets into Peripheral Vein, Percutaneous Approach (ICD-10-PCS; 2022-11-29)
PROC: 02RF08Z Replacement of Aortic Valve with Zooplastic Tissue, Open Approach (ICD-10-PCS; principal; 2022-11-29 07:38)
DX: I71.21 Aneurysm of the ascending aorta, without rupture (principal); I48.0 Paroxysmal atrial fibrillation; I35.1 Nonrheumatic aortic (valve) insufficiency
CPT/HCPCS: 36415; 36600; 71045; 71046; 76376; 80048; 80053; 81003; 82330; 82435; 82803; 82947; 82948; 83036; 83735; 84100; 84132; 84295; 85007; 85018; 85025; 85347; 85384; 85610; 85730; 86885; 86900; 86901; 86920; 87070; 87081; 93005; 93312; 93970; 94002; 94010; 94640; 94664; 94668; 94760; 97116; 97161; 97530; A4333; A4615; A4618; A6213; A6258; A6449; A7000; A7048; C1751; C1769; C1894; G0378; J0282; J0690; J1265; J1644; J1815; J2060; J2150; J2270; J2405; J2704; J2930; J3370; J3475; J3480; J3490; J7030; J7040; J7050; J7060; J7120; P9035; P9045; P9047